=== PATIENT | female | born 1980 | race Caucasian/White ===

== ENCOUNTER 2017-01-06 16:09 | Emergency (ER) | payer SELFPAY ==
[~2017-01-06] VITALS: Ht 160 cm; Wt 58.0 kg
[~2017-01-06 16:09] MED LIST: ACYC800T PO; BUSP10TA PO; CEFT500T3 PO; TOPI1TAB36 PO; TRAZ100T4 PO; VENL75TA PO
[2017-01-06 16:10] VITALS: BP 139/68; PULSE 76; RESP 14; TEMP 98.7; O2SAT 98
[2017-01-06] MEDS ORDERED: cefTRIAXone 250 MG VIAL IM ONE (16:45)
[2017-01-06] MEDS ORDERED: AZITHROMYCIN PWD FOR SUSP 1 GM PACKET PO ONE (16:45)
[2017-01-06] MEDS ORDERED: LIDOCAINE HCL 1% 50 ML VIAL IM ONE (16:45)
[2017-01-06 17:15] LABS: BLOOD, URINE SMALL (NEG); COMMENT (UR) CULT NOT INDICATED; CULTURE IF INDICATED CULT NOT INDICATED; GLUCOSE,URINE NEG (NEG); KETONE, URINE NEG (NEG); MUCUS URINE FEW /lpf (OCC); NITRITE,URINE NEG (NEG); PH, URINE 6.5 (5.0-8.5); SQUAMOUS EPITHELIAL CELL URINE 2 /hpf (0-5); URINE COLOR YELLOW (YELLW/STRAW)
--- NOTE | 2017-01-06 17:43 | PD ---
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 She says she has some pain to her lower back, and also her lower abdomen. She denies nausea or vomiting. She says she has noticed some blood in her urine. She is sexually active and does not use condoms. She says her discharge is yellowish in color and has a foul odor. She denies any fever or chills. PFSH Past Medical History Anxiety: Yes Depression: Yes Diminished Hearing: No Hepatitis: Yes (C) Medical other: Yes (ETOH ABUSE WITH REHAB ) Neurologic: Yes (PINCHED NERVE LEFT SIDE) Immunizations Current: No Tetanus Vaccination: > 5 Years Influenza Vaccination: No ?: Not LMP: 12/18/2016 : 6 Para: 4 Miscarriage: 1 : 1 Tubal Ligation: Yes Past Surgical History Section: Yes (X4) Gynecologic Surgery: Yes ( X 4 ) Social History Alcohol Use: No (sober for 1 year per the patient, Hx ETOH Abuse) Tobacco Use: Yes (1/2 DAY) Substance Use: Yes (HX OF DRUG USE (NON-IV)) Allergies-Medications (Allergen,Severity, Reaction): Uncoded Allergies: ALL NARCOTICS (Adverse Reaction, Severe, 07/08/14) PT PREFERS NOT TO BE GIVEN NARCOTICS Reported Meds & Prescriptions Reported Meds & Active Scripts Active Doxycycline Hyclate 100 Mg Cap 100 Mg PO BID Ceftin (Cefuroxime Axetil) 500 Mg Tab 500 Mg PO BID 7 Days Acyclovir 800 Mg Tab 800 Mg PO BID 5 Days Reported Trazodone (Trazodone HCl) 100 Mg Tab 100 Mg PO HS PRN Effexor (Venlafaxine HCl) 75 Mg Tab 75 Mg PO DAILY Buspirone (Buspirone HCl) 10 Mg Tab 10 Mg PO TID Topiramate 50 Mg Tab 50 Mg PO BID Review of Systems Except as stated in HPI: all other systems reviewed are Neg General / Constitutional: No: Fever, Chills HENT: No: Headaches, Lightheadedness Cardiovascular: No: Chest Pain or Discomfort Respiratory: No: Shortness of Breath Gastrointestinal: Positive: Abdominal Pain, No: Nausea, Vomiting Genitourinary: Positive: Dysuria, Discharge Musculoskeletal: No: Myalgias Skin: No Rash, No Itching Neurologic: No: Weakness, Dizziness Physical Exam Narrative GENERAL: Awake and alert, in no acute distress. SKIN: Focused skin assessment warm/dry. HEAD: Atraumatic. Normocephalic. EYES: Pupils equal and round. No scleral icterus. ENT: Mucous membranes pink and moist. NECK: Trachea midline. No JVD. CARDIOVASCULAR: Regular rate and rhythm. No murmur appreciated. RESPIRATORY: No accessory muscle use. Clear to auscultation. Breath sounds equal bilaterally. GASTROINTESTINAL: Abdomen soft, non-tender, nondistended. No CVA tenderness. : Performed in the presence of a female nurse. Yellowish, thin discharge. No cervical lesions. CMT present. MUSCULOSKELETAL: No obvious deformities. No clubbing. No cyanosis. No edema. NEUROLOGICAL: Awake and alert. No obvious cranial nerve deficits. Motor grossly within normal limits. Normal speech. PSYCHIATRIC: Appropriate mood and affect; insight and judgment normal. Data Data Last Documented VS Vital Signs Date Time Temp Pulse Resp B/P Pulse Ox O2 Delivery O2 Flow Rate FiO2 01/06/17 16:10 98.7 76 14 139/68 98 Orders Urinalysis - C+S If Indicated (01/06/17 16:39) Wet Prep Profile (01/06/17 16:39) Gc And Chlamydia Pcr (01/06/17 16:39) Azithromycin Powd Pack (Zithromax Powd P (01/06/17 16:45) Ed Urine Pregnancytest Poc (01/06/17 16:39) Ceftriaxone Inj (Rocephin Inj) (01/06/17 16:45) Lidocaine 1% Inj (50 Ml) (Xylocaine 1% I (01/06/17 16:45) Metronidazole (Flagyl) (01/06/17 17:45) Labs Laboratory Tests Test 01/06/17 16:40 Urine Color YELLOW Urine Turbidity CLEAR Urine pH 6.5 Urine Specific [place] 1.018 Urine Protein NEG mg/dL Urine Glucose (UA) NEG mg/dL Urine Ketones NEG mg/dL Urine Occult Blood SMALL Urine Nitrite NEG Urine Bilirubin NEG Urine Urobilinogen LESS THAN 2.0 MG/DL Urine Leukocyte Esterase SMALL Urine RBC 2 /hpf Urine WBC 3 /hpf Urine Squamous Epithelial 2 /hpf Cells Urine Mucus FEW /lpf Microscopic Urinalysis Comment CULT NOT INDICATED Clue Cells (Wet Prep) PRESENT Vaginal Trichomonas (Wet Prep) PRESENT Vaginal Yeast (Wet Prep) NONE SEEN Chlamydia trachomatis DNA NOT DETECTED (PCR) Neisseria gonorrhoeae DNA NOT DETECTED (PCR) MDM Medical Decision Making Medical Screen Exam Complete: Yes Emergency Medical Condition: Yes Medical Record Reviewed: Yes Differential Diagnosis GC and chlamydia versus Trichomonas versus UTI Narrative Course Patient is a 36-year-old female who comes in complaining of vaginal discharge and dysuria. Exam shows a yellowish discharge. Urinalysis shows no evidence of UTI. Wet prep was positive for Trichomonas. Patient treated with Rocephin and azithromycin, swab sent for GC and chlamydia testing. Given Flagyl for Trichomonas. Advised to tell her partner that he needs to be treated as well. Advised to refrain from sexual activity in the next 2 weeks. Will be discharged with prescription for doxycycline due to CMT. Patient advised to follow-up at the health department. Advised to return to the ED as needed for any worsening symptoms. Diagnosis Primary Impression: Trichomonal vaginitis Additional Impression: PID (acute pelvic inflammatory disease) Patient Instructions: General Instructions, Sexually Transmitted Diseases (ED) , Trichomoniasis (ED) Additional Instructions: Take all of your antibiotics. Refrain from sexual activity for the next 1-2 weeks. Have your partner get treated. Return to the ED as needed for any worsening symptoms. Scripts Doxycycline Hyclate 100 Mg [id number] Mg PO BID #28 CAP Ref 0 Prov:Alina Levi MD 01/06/17 Disposition: 01 DISCHARGE HOME Condition: Stable Alina Levi MD Jan 06, 2017 17:43
[2017-01-06] MEDS ORDERED: metroNIDAZOLE 500 MG TAB PO ONE (17:45)
[2017-01-06] MEDS ORDERED: DOXY100C PO (17:57)
[2017-01-06 19:25] LABS: CHLAMYDIA PCR NOT DETECTED (NOT DETECT); NEISSERIA PCR NOT DETECTED (NOT DETECT)
== END 2017-01-06 19:21 | disposition home or self-care (01) ==
LOC: NEPD 16:09
DX: A59.01 Trichomonal vulvovaginitis (principal); N73.0 Acute parametritis and pelvic cellulitis
CPT/HCPCS: 81001; 84703; 87210; 87491; 87591; 96372; 99284; J0696

== ENCOUNTER 2017-01-09 10:56 | Emergency (ER) | payer SELFPAY ==
[~2017-01-09] VITALS: Ht 154.9 cm; Wt 55.0 kg
[~2017-01-09 10:56] MED LIST changes: +DOXY100C PO
[2017-01-09 10:58] VITALS: BP 131/68; PULSE 62; RESP 15; TEMP 98; O2SAT 99
[2017-01-09] MEDS ORDERED: DOXY100C PO (11:03)
--- NOTE | 2017-01-09 11:04 | PD ---
HPI Chief Complaint: Medication Refill Request Time Seen by Provider: 11:03 Travel History International Travel<30 days: No Contact w/Intl Traveler<30days: No Traveled to known affect area: No History of Present Illness HPI 36-year-old female presents to the emergency department requesting a prescription for a medication that she was prescribed here on January 06 after being seen and treated for an STD. She states that she lost her prescription and never had it filled. She denies fever, vomiting. Allergies all narcotics. Has no other medical complaints. No other modifying factors or associated signs and symptoms. PFSH Past Medical History Anxiety: Yes Depression: Yes Diminished Hearing: No Hepatitis: Yes (C) Neurologic: Yes (PINCHED NERVE LEFT SIDE) Immunizations Current: No ?: Not : 6 Para: 4 Miscarriage: 1 : 1 Tubal Ligation: Yes Past Surgical History Section: Yes (X4) Gynecologic Surgery: Yes ( X 4 ) Social History Alcohol Use: No (sober for 1 year per the patient, Hx ETOH Abuse) Tobacco Use: Yes (1/2 PK DAY) Substance Use: Yes (HX OF DRUG USE (NON-IV)) Allergies-Medications (Allergen,Severity, Reaction): Uncoded Allergies: ALL NARCOTICS (Adverse Reaction, Severe, 07/08/14) PT PREFERS NOT TO BE GIVEN NARCOTICS Reported Meds & Prescriptions Reported Meds & Active Scripts Active Doxycycline Hyclate 100 Mg Cap 100 Mg PO BID Reported Effexor (Venlafaxine HCl) 75 Mg Tab 75 Mg PO DAILY Buspirone (Buspirone HCl) 10 Mg Tab 10 Mg PO TID Review of Systems Except as stated in HPI: all other systems reviewed are Neg Physical Exam Narrative GENERAL: Well-nourished, well-developed female patient, in no acute distress; afebrile, nontoxic-appearing SKIN: Warm and dry. HEAD: Atraumatic. Normocephalic. EYES: Pupils equal and round. No scleral icterus. No injection or drainage. ENT: Mucosa pink and moist. Airway patent. NECK: Trachea midline. CARDIOVASCULAR: Regular rate. RESPIRATORY: No accessory muscle use. GASTROINTESTINAL: Flat. MUSCULOSKELETAL: No obvious deformities. No clubbing. No cyanosis. No edema. NEUROLOGICAL: Awake and alert. Oriented 3. No obvious cranial nerve deficits. Motor grossly within normal limits. Normal speech. PSYCHIATRIC: Appropriate mood and affect; insight and judgment normal. Data Data Last Documented VS Vital Signs Date Time Temp Pulse Resp B/P Pulse Ox O2 Delivery O2 Flow Rate FiO2 01/09/17 10:58 98.0 62 15 131/68 99 MDM Medical Decision Making Medical Screen Exam Complete: Yes Emergency Medical Condition: Yes Medical Record Reviewed: Yes Differential Diagnosis Medication refill, medical clearance, trichomoniasis Narrative Course 36-year-old female that was seen here on January 06 and positive for Trichomonas. She was given a prescription for doxycycline and apparently she lost it. She is here for another prescription for the doxycycline. Doxycycline prescribed for home. 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 Patient verbalizes understanding and agreement with treatment plan. Patient is medically cleared and stable for discharge. Discussed reasons to return to the emergency department. Instructed patient to follow up with primary care provider. Patient agrees with treatment plan. The patients vital signs are stable and the patient is stable for outpatient follow- up and treatment. Patient discharged home, stable and in no acute distress. Diagnosis Primary Impression: Encounter for medication refill Referrals: Primary Care Physician Patient Instructions: General Instructions, Trichomoniasis (ED) Additional Instructions: Take medication as prescribed Follow-up with primary care provider Return to the emergency department immediately with worsening of symptoms Med/Other Pt SpecificInfo: Prescription(s) given Scripts Doxycycline Hyclate 100 Mg [id number] Mg PO BID #28 CAP Ref 0 Prov:Jessie Mac 01/09/17 Disposition: 01 DISCHARGE HOME Condition: Stable Jessie Mac January 09, 2017 11:04
== END 2017-01-09 11:30 | disposition home or self-care (01) ==
LOC: NEPK 10:56
DX: A59.01 Trichomonal vulvovaginitis (principal); N73.9 Female pelvic inflammatory disease, unspecified; Z79.899 Other long term (current) drug therapy
CPT/HCPCS: 99281

== ENCOUNTER 2017-03-22 06:16 | Emergency (ER) | payer SELFPAY ==
[~2017-03-22] VITALS: Ht 160 cm; Wt 56.8 kg
[~2017-03-22 06:16] MED LIST changes: -ACYC800T PO; -CEFT500T3 PO; -TOPI1TAB36 PO; -TRAZ100T4 PO
[2017-03-22 06:18] VITALS: BP 107/62; PULSE 82; RESP 16; TEMP 98.6; O2SAT 96
[2017-03-22 07:02] VITALS: BP 115/68; PULSE 80; RESP 16; O2SAT 97
--- NOTE | 2017-03-22 07:11 | PD ---
HPI Chief Complaint: Abdominal Pain Time Seen by Provider: 07:10 Travel History International Travel<30 days: No Contact w/Intl Traveler<30days: No Traveled to known affect area: No History of Present Illness HPI 36-year-old female came to the emergency room with history of left adnexal pain. Patient says this has been going on for past 2 days. There is associated vaginal discharge. Patient was recently treated for STD about 2-3 weeks ago. She says she finished the course of the antibiotic. She was positive for Trichomonas and Bacterial vaginosis. The partner didn't get treated and patient has had unprotected sex since then. Vital signs are stable. As per her she has got chills and a temperature of 100 last night. She looked uncomfortable. Vital signs were stable. [facility] Past Medical History Narrative Medical List of her past medical, surgical, social and family history is reviewed from the nursing note. Anxiety: Yes Depression: Yes Diminished Hearing: No Hepatitis: Yes (HEP C) Neurologic: Yes (PINCHED NERVE LEFT SIDE) Immunizations Current: No Tetanus Vaccination: Unknown Influenza Vaccination: No ?: Not LMP: 03/13/2017 : 6 Para: 4 Miscarriage: 1 : 1 Tubal Ligation: Yes Past Surgical History Section: Yes (4) Gynecologic Surgery: Yes ( X 4 ) Social History Alcohol Use: No Tobacco Use: Yes (10 CIGARETTES PER DAY) Substance Use: No Allergies-Medications (Allergen,Severity, Reaction): Uncoded Allergies: ALL NARCOTICS (Adverse Reaction, Severe, 07/08/14) PT PREFERS NOT TO BE GIVEN NARCOTICS Comments List of her allergies reviewed from the nursing note Reported Meds & Prescriptions Reported Meds & Active Scripts Active Doxycycline Hyclate 100 Mg Cap 100 Mg PO BID Reported Effexor (Venlafaxine HCl) 75 Mg Tab 75 Mg PO DAILY Buspirone (Buspirone HCl) 10 Mg Tab 10 Mg PO TID Narrative Medication List of her home medications reviewed from the nursing note. Review of Systems Except as stated in HPI: all other systems reviewed are Neg Physical Exam Narrative GENERAL: Awake, alert, moderate distress SKIN: Focused skin assessment warm/dry. HEAD: Atraumatic. Normocephalic. EYES: Pupils equal and round. No scleral icterus. No injection or drainage. ENT: No nasal bleeding or discharge. Mucous membranes pink and moist. NECK: Trachea midline. No JVD. CARDIOVASCULAR: Regular rate and rhythm. No murmur appreciated. RESPIRATORY: No accessory muscle use. Clear to auscultation. Breath sounds equal bilaterally. GASTROINTESTINAL: Abdomen soft, non-tender, nondistended. Hepatic and splenic margins not palpable. : External inspection was within normal limit. Speculum exam showed normal looking cervix with a normal vaginal discharge. Patient did have right and left adnexal tenderness. No CMT MUSCULOSKELETAL: No obvious deformities. No clubbing. No cyanosis. No edema. NEUROLOGICAL: Awake and alert. No obvious cranial nerve deficits. Motor grossly within normal limits. Normal speech. PSYCHIATRIC: Appropriate mood and affect; insight and judgment normal. Data Data Last Documented VS Vital Signs Date Time Temp Pulse Resp B/P Pulse Ox O2 Delivery O2 Flow Rate FiO2 03/22/17 07:02 80 16 115/68 97 Room Air 03/22/17 06:18 98.6 Orders Complete Blood Count With Diff (03/22/17 07:14) Comprehensive Metabolic Panel (03/22/17 07:14) Urinalysis - C+S If Indicated (03/22/17 07:14) Iv Access Insert/Monitor (03/22/17 07:14) Ecg Monitoring (03/22/17 07:14) Oximetry (03/22/17 07:14) Sodium Chloride 0.9% Flush (Ns Flush) (03/22/17 07:15) Ed Urine Pregnancytest Poc (03/22/17 07:14) Gc And Chlamydia Pcr (03/22/17 07:14) Wet Prep Profile (03/22/17 07:14) Metronidazole (Flagyl) (03/22/17 07:45) Azithromycin Powd Pack (Zithromax Powd P (03/22/17 07:45) Ceftriaxone Inj (Rocephin Inj) (03/22/17 07:45) Lidocaine 1% Inj (50 Ml) (Xylocaine 1% I (03/22/17 07:44) Us Pelvis Comp W Doppler (03/22/17 ) Mandatory Outpatient Referral (03/22/17 09:54) Labs Laboratory Tests Test 03/22/17 03/22/17 07:20 07:35 White Blood Count 7.5 TH/MM3 Red Blood Count 4.14 MIL/MM3 Hemoglobin 11.7 GM/DL Hematocrit 36.1 % Mean Corpuscular Volume 87.1 FL Mean Corpuscular Hemoglobin 28.3 PG Mean Corpuscular Hemoglobin 32.5 % Concent Red Cell Distribution Width 14.9 % Platelet Count 402 TH/MM3 Mean Platelet Volume 7.8 FL Neutrophils (%) (Auto) 54.7 % Lymphocytes (%) (Auto) 31.1 % Monocytes (%) (Auto) 11.5 % Eosinophils (%) (Auto) 2.3 % Basophils (%) (Auto) 0.4 % Neutrophils # (Auto) 4.1 TH/MM3 Lymphocytes # (Auto) 2.3 TH/MM3 Monocytes # (Auto) 0.9 TH/MM3 Eosinophils # (Auto) 0.2 TH/MM3 Basophils # (Auto) 0.0 TH/MM3 CBC Comment DIFF FINAL Differential Comment Urine Color YELLOW Urine Turbidity CLEAR Urine pH 7.0 Urine Specific [place] 1.018 Urine Protein NEG mg/dL Urine Glucose (UA) NEG mg/dL Urine Ketones NEG mg/dL Urine Occult Blood NEG Urine Nitrite NEG Urine Bilirubin NEG Urine Urobilinogen LESS THAN 2.0 MG/DL Urine Leukocyte Esterase NEG Urine RBC LESS THAN 1 /hpf Urine WBC 1 /hpf Urine Squamous Epithelial 3 /hpf Cells Urine Amorphous Sediment OCC Microscopic Urinalysis Comment CULT NOT INDICATED Sodium Level 140 MEQ/L Potassium Level 3.9 MEQ/L Chloride Level 107 MEQ/L Carbon Dioxide Level 25.6 MEQ/L Anion Gap 7 MEQ/L Blood Urea Nitrogen 15 MG/DL Creatinine 1.10 MG/DL Estimat Glomerular Filtration 57 ML/MIN Rate Random Glucose 99 MG/DL Calcium Level 8.9 MG/DL Total Bilirubin 0.2 MG/DL Aspartate Amino Transf 51 U/L (AST/SGOT) Alanine Aminotransferase 75 U/L (ALT/SGPT) Alkaline Phosphatase 51 U/L Total Protein 7.8 GM/DL Albumin 3.7 GM/DL Clue Cells (Wet Prep) NONE SEEN Vaginal Trichomonas (Wet Prep) NONE SEEN Vaginal Yeast (Wet Prep) NONE SEEN Chlamydia trachomatis DNA NOT DETECTED (PCR) Neisseria gonorrhoeae DNA NOT DETECTED (PCR) MDM Medical Decision Making Medical Screen Exam Complete: Yes Emergency Medical Condition: Yes Medical Record Reviewed: Yes Differential Diagnosis PID, STD, UTI Narrative Course 8:18 AM blood test results of back and within normal limits. UA is within normal limit. Wet mount is negative. Given the exam patient was treated for PID. I have ordered a pelvic ultrasound. Awaiting for the ultrasound to be done and resulted. 9:53 AM ultrasound report is within normal limit. I'll discharge her home. Procedures EKG Prior to Arrival: No Diagnosis Primary Impression: PID (acute pelvic inflammatory disease) Additional Impression: Chronic pelvic pain in female Referrals: Treva Lund MD 3 days Additional Instructions: Take the medication as per the prescription direction. Follow-up with your FEATHER SAWYER. If you do not have a FEATHER SAWYER specialist follow-up with the FEATHER SAWYER who is name and number been given to you on this discharge paperwork. Med/Other Pt SpecificInfo: Prescription(s) given Scripts Doxycycline Hyclate 100 Mg [id number] Mg PO BID #28 CAP Ref 0 Prov:Marimar Peters MD 03/22/17 Disposition: 01 DISCHARGE HOME Condition: Stable Marimar Peters MD Mar 22, 2017 07:10
[2017-03-22] MEDS ORDERED: SODIUM CHLORIDE 0.9% FLUSH 10 ML FLUSH IV FLUSH PRN (07:15)
[2017-03-22 07:29] LABS: AUTOMATED NEUTROPHIL # 4.1 TH/MM3 (1.8-7.7); BASOPHIL % 0.4 % (0.0-2.0); EOSINOPHIL # 0.2 TH/MM3 (0-0.4); EOSINOPHIL % 2.3 % (0.0-4.0); HEMATOCRIT 36.1 % (35.0-46.0); HEMO FLAGS DIFF FINAL; LYMPH % 31.1 % (9.0-44.0); LYMPHOCYTE # 2.3 TH/MM3 (1.0-4.8); MEAN CELL VOLUME 87.1 FL (80.0-100.0); MEAN CORPUSCULAR HEMOGLOBIN 28.3 PG (27.0-34.0); MEAN CORPUSCULAR HGB CONC 32.5 % (32.0-36.0); MONO % 11.5 % (0.0-8.0); NEUT % 54.7 % (16.0-70.0); PLATELET COUNT 402 TH/MM3 (150-450); RED BLOOD COUNT 4.14 MIL/MM3 (4.00-5.30); RED CELL DISTRIBUTION WIDTH 14.9 % (11.6-17.2); WHITE BLOOD COUNT 7.5 TH/MM3 (4.0-11.0)
[2017-03-22 07:44] LABS: ALT (GPT) 75 U/L (10-53); ANION GAP 7 MEQ/L (5-15); AST (GOT) 51 U/L (15-37); BICARBONATE 25.6 MEQ/L (21.0-32.0); BLOOD UREA NITROGEN 15 MG/DL (7-18); CHLORIDE 107 MEQ/L (98-107); GLOMERULAR FILTRATION RATE 57 ML/MIN (>89); POTASSIUM 3.9 MEQ/L (3.5-5.1); SODIUM (NA) 140 MEQ/L (136-145)
[2017-03-22] MEDS ORDERED: LIDOCAINE HCL 1% 50 ML VIAL ONE (07:44)
[2017-03-22] MEDS ORDERED: metroNIDAZOLE 500 MG TAB PO ONE (07:45)
[2017-03-22] MEDS ORDERED: AZITHROMYCIN PWD FOR SUSP 1 GM PACKET PO ONE (07:45)
[2017-03-22] MEDS ORDERED: cefTRIAXone 250 MG VIAL IM ONE (07:45)
[2017-03-22 07:46] LABS: ALKALINE PHOSPHATASE 51 U/L (45-117); TOTAL BILIRUBIN ADULT 0.2 MG/DL (0.2-1.0)
[2017-03-22 08:08] LABS: BLOOD, URINE NEG (NEG); COMMENT (UR) CULT NOT INDICATED; CULTURE IF INDICATED CULT NOT INDICATED; GLUCOSE,URINE NEG (NEG); KETONE, URINE NEG (NEG); NITRITE,URINE NEG (NEG); SQUAMOUS EPITHELIAL CELL URINE 3 /hpf (0-5); URINE COLOR YELLOW (YELLW/STRAW)
--- NOTE | 2017-03-22 09:39 | RADRPT ---
EXAM DATE/TIME: 03/22/2017 08:11 [place] COMPARISON: No previous studies available for comparison. INDICATIONS : Pelvic pain. MEDICAL HISTORY : Hepatitis C. Pelvic pain. SURGICAL HISTORY : Tubal ligation. section. ENCOUNTER: Initial ACUITY: 1 week PAIN SCORE: 5/10 LOCATION: Bilateral pelvis MEASUREMENTS: UTERUS: 9.0 x 4.0 x 5.7 cm ENDOMETRIAL STRIPE: 10 mm RIGHT OVARY: 3.0 x 2.3 x 2.3 cm LEFT OVARY: 3.0 x 1.2 x 2.6 cm FINDINGS: There is no free fluid, or adnexal mass. No definite uterine mass is identified for technique, howev er the uterus appears heterogeneous. There are cysts in both kidneys measuring 1.1 cm on the right an d 1.5 cm on the left slightly complex. CONCLUSION: Nonspecific thickening of the endometrial stripe and cysts in the ovaries most likely functional, repeat pelvic ultrasound is suggested in 6 months as a conservative follow up. Sobeida Parikh MD on March 22, 2017 at 9:37 Board Certified Radiologist. This report was verified electronically.
[2017-03-22] MEDS ORDERED: DOXY100C PO (09:54)
[2017-03-22 10:01] LABS: CHLAMYDIA PCR NOT DETECTED (NOT DETECT); NEISSERIA PCR NOT DETECTED (NOT DETECT)
== END 2017-03-22 10:26 | disposition home or self-care (01) ==
LOC: NEPE 06:16
DX: N73.9 Female pelvic inflammatory disease, unspecified (principal); R10.2 Pelvic and perineal pain; N83.201 Unspecified ovarian cyst, right side; N83.202 Unspecified ovarian cyst, left side; F41.9 Anxiety disorder, unspecified; F32.9 Major depressive disorder, single episode, unspecified; B19.20 Unspecified viral hepatitis C without hepatic coma; F17.210 Nicotine dependence, cigarettes, uncomplicated; Z79.899 Other long term (current) drug therapy
CPT/HCPCS: 76856; 80053; 81001; 84703; 85025; 87210; 87491; 87591; 93975; 96372; 99284; J0696

== ENCOUNTER 2017-03-25 22:51 | Emergency (ER) | payer SELFPAY ==
[~2017-03-25] VITALS: Ht 160 cm; Wt 55.0 kg
[2017-03-25 22:52] VITALS: BP 122/78; PULSE 67; RESP 16; TEMP 98.9; O2SAT 98
[2017-03-25 23:53] VITALS: BP 129/68; PULSE 86; RESP 16; O2SAT 99
[2017-03-26] MEDS ORDERED: IOHEXOL 350 MG/ML 10 ML VIAL (for RAD DIAG) IV ONE (01:08)
--- NOTE | 2017-03-26 01:14 | PD ---
HPI Chief Complaint: Abdominal Pain Time Seen by Provider: 23:50 Travel History International Travel<30 days: No Contact w/Intl Traveler<30days: No Traveled to known affect area: No History of Present Illness HPI This is a 36-year-old female who presents to the emergency department with lower abdominal discomfort that been present for 1 week, constant, moderate severity, worse with moving, improved with rest with no associated nausea or vomiting. She's had some subjective fevers. She was seen here on March 22 and diagnosed with likely PID. She had a pelvic exam and a pelvic ultrasound. She is still completing her antibiotics but she feels like she's not getting any better. She denies any current vaginal discharge or vaginal bleeding. She denies any dysuria, urinary urgency or frequency. She denies any diarrhea PFSH Past Medical History Anxiety: Yes Depression: Yes Diminished Hearing: No Hepatitis: Yes (HEP C) Neurologic: Yes (PINCHED NERVE LEFT SIDE) Immunizations Current: No ?: Not LMP: 03/13/17 : 6 Para: 4 Miscarriage: 1 : 1 Tubal Ligation: Yes Past Surgical History Section: Yes (4) Gynecologic Surgery: Yes ( X 4 ) Social History Alcohol Use: No Tobacco Use: Yes (1/2PPD) Substance Use: No (HX OF) Allergies-Medications (Allergen,Severity, Reaction): Uncoded Allergies: ALL NARCOTICS (Adverse Reaction, Severe, 07/08/14) PT PREFERS NOT TO BE GIVEN NARCOTICS Reported Meds & Prescriptions Reported Meds & Active Scripts Active Doxycycline Hyclate 100 Mg Cap 100 Mg PO BID Reported Effexor (Venlafaxine HCl) 75 Mg Tab 75 Mg PO DAILY Buspirone (Buspirone HCl) 10 Mg Tab 10 Mg PO TID Review of Systems Except as stated in HPI: all other systems reviewed are Neg Physical Exam Narrative GENERAL:Well appearing, no acute distress SKIN: Focused skin assessment warm and dry. HEAD: Atraumatic. Normocephalic. EYES: Pupils equal and round. No injection or drainage. ENT: Moist mucous membranes NECK: Trachea midline. CARDIOVASCULAR: Regular rate and rhythm. No murmur appreciated. RESPIRATORY: Clear to auscultation. Breath sounds equal bilaterally. GASTROINTESTINAL: Abdomen soft, tender to palpation in the left lower quadrant with no rebound/guarding MUSCULOSKELETAL: No obvious deformities. NEUROLOGICAL: Awake and alert. No obvious cranial nerve deficits. Moving all extremities PSYCHIATRIC: Appropriate mood and affect; insight and judgment normal. Data Data Last Documented VS Vital Signs Date Time Temp Pulse Resp B/P Pulse Ox O2 Delivery O2 Flow Rate FiO2 03/25/17 23:53 86 16 129/68 99 Room Air 03/25/17 22:52 98.9 Orders Complete Blood Count With Diff (03/25/17 23:59) Basic Metabolic Panel (Bmp) (03/25/17 23:59) Ct Abd/Pel W Iv Contrast(Rout) (03/25/17 ) Iohexol 350 Inj (Omnipaque 350 Inj) (03/26/17 01:08) [facility] Medical Decision Making Medical Screen Exam Complete: Yes Emergency Medical Condition: Yes Interpretation(s) Afebrile, no tachycardia, normotensive Labs from 4 days ago were reassuring. Urinalysis was negative for infection and GC and chlamydia were negative as well as Trichomonas Differential Diagnosis Diverticulitis, ovarian cyst, abscess, mass Narrative Course Is a 36-year-old female who presents to the emergency department with lower abdominal discomfort that's been going on for 1 week. She had an extensive workup performed several days ago including labs and a pelvic ultrasound which was unremarkable. She was treated empirically for PID. She returns today because her pain is worsening. The only thing left on her workup would be to do a CT scan. CT scan was obtained and that was unremarkable. She is not febrile and her vital signs are reassuring. I don't think any further testing is warranted. I suspect she may have endometriosis. She says her pain comes somewhat cyclically and occurs every 1-2 months. I advised her to follow-up with a heat treatment technician as an outpatient. I think she can safely be discharged home. Diagnosis Primary Impression: Abdominal pain Qualified Code: R10.30 - Lower abdominal pain Patient Instructions: General Instructions Additional Instructions: If you develop severe or worsening abdominal pain, fever>100.4, persistent vomiting or inability to eat or drink return to the emergency department immediately. Follow up with your primary care physician in 1-2 days for a check-up. Med/Other Pt SpecificInfo: No Change to Meds Disposition: DISCHARGE HOME Condition: Stable Lida Gleason MD Mar 26, 2017 01:14
--- NOTE | 2017-03-26 01:22 | RADRPT ---
EXAM DATE/TIME: 03/26/2017 01:03 [place] COMPARISON: No previous studies available for comparison. INDICATIONS : Abdominal pain with nausea. IV CONTRAST: 80 cc Omnipaque 350 (iohexol) IV ORAL CONTRAST: No oral contrast ingested. RADIATION DOSE: 4.76 CTDIvol (mGy) MEDICAL HISTORY : Hepatitis C. SURGICAL HISTORY : section. Tubal ligation. ENCOUNTER: Initial ACUITY: 1 day PAIN SCALE: 8/10 LOCATION: abdomen TECHNIQUE: Volumetric scanning of the abdomen and pelvis was performed. Using automated exposure control and ad justment of the mA and/or kV according to patient size, radiation dose was kept as low as reasonably achievable to obtain optimal diagnostic quality images. DICOM format image data is available electro nically for review and comparison. FINDINGS: LOWER LUNGS: The visualized lower lungs are clear. LIVER: Homogeneous density without lesion. There is no dilation of the biliary tree. No calcified gallston es. SPLEEN: Normal size without lesion. PANCREAS: Within normal limits. KIDNEYS: Normal in size and shape. There appears to be some cortical scarring of the left kidney. There is no mass, stone or hydronephrosis. ADRENAL GLANDS: Within normal limits. VASCULAR: There is no aortic aneurysm. BOWEL/MESENTERY: The stomach, small bowel, and colon demonstrate no acute abnormality. There is no free intraperitone al air or fluid. The appendix is nondilated. ABDOMINAL WALL: Within normal limits. RETROPERITONEUM: There is no lymphadenopathy. BLADDER: No wall thickening or mass. REPRODUCTIVE: Within normal limits. There is a 1.4 cm cyst in the right adnexa. INGUINAL: There is no lymphadenopathy or hernia. MUSCULOSKELETAL: Within normal limits for patient age. CONCLUSION: 1. Small 1.4 cm right ovarian cyst. 2. Nonspecific cortical scarring of the left kidney. 3. No acute intra-abdominal/pelvic pathology. Rick Acosta MD on March 26, 2017 at 1:17 Board Certified Radiologist. This report was verified electronically.
[2017-03-26] MEDS: SODIUM CHLOR 0.9% 1000 ML INJ 1,000 ML IV SCH (01:30)
[2017-03-26 03:15] VITALS: BP 120/66
== END 2017-03-26 03:15 | disposition home or self-care (01) ==
LOC: NEPC 22:51
DX: R10.30 Lower abdominal pain, unspecified (principal); N83.201 Unspecified ovarian cyst, right side; F41.9 Anxiety disorder, unspecified; B19.20 Unspecified viral hepatitis C without hepatic coma; F17.200 Nicotine dependence, unspecified, uncomplicated; Z79.899 Other long term (current) drug therapy
CPT/HCPCS: 74177; 96360; 96361; 99285; J7030; Q9967